=== PATIENT | female | born 1985 | race African-American/Black ===

== ENCOUNTER 2018-09-16 04:24 | Emergency (ER) | payer OTHER ==
[2018-09-16] MEDS ORDERED: ACETAMINOPHEN 325 MG TABLET PO ONE (04:34)
[2018-09-16] MEDS ORDERED: KETOROLAC TROMETHAMINE 60 MG/2 ML SDV IM ONE (05:27)
[2018-09-16] MEDS ORDERED: CYCLOBENZAPRINE HCL 10 MG TABLET PO ONE (05:28)
[2018-09-16] MEDS ORDERED: LIDOCAINE 5% (700 MG) TRANSDERMAL ADH..PATCH TP ONE (05:38)
--- NOTE | 2018-09-16 06:02 | RADIOLOGY REPORT (SQ) ---
CLINICAL HISTORY: pain COMPARISON: None. TECHNIQUE: XR HIP 2 OR MORE VIEWS 09/16/2018 5:26 AM SENIOR OFFICE SUPPORT ASSISTANT [facility] FINDINGS: There is no fracture. Joint spaces are preserved. Soft tissues are unremarkable. There are small smoothly marginated ossicles superior to the left greater trochanter. IMPRESSION: No acute osseous findings.
--- NOTE | 2018-09-16 06:26 | ER Document Report ---
HPI - HPI Patient complains to provider of: left leg pain Time Seen by Provider: 09/16/18 05:26 Pain Level: 4 Context: Patient is a 32-year-old female presenting to the emergency department complaining of left hip pain. Patient states she has a long history of left hip pain. States she was recently diagnosed with sciatic nerve pain and then also had a "nerve stimulator test." States she knows she has a pinched nerve in her right leg. States she is unsure of exactly where this or what is being pinched but states this evening the pain intensified which presents her to the emergency room. Patient denies current follow-up with orthopedics or primary care provider. States this nerve stimulator was "a long time ago." Patient denies any recent trauma or injury to the left hip or buttocks area. Patient initially states she does have some numbness and tingling in the left lower extremity. Patient denies any loss of Bowel or bladder, denies urinary retention. Past medical history: IBS, "pinched nerve" Medications: True Pedrito Allergies: None Patient states she is currently on her menses. - CONSTITUTIONAL Constitutional: DENIES: Fever, Chills - MUSCULOSKELETAL Musculoskeletal: REPORTS: Extremity pain - left hip Past Medical History - Social History Smoking Status: Never Smoker Chew tobacco use (# tins/day): No Frequency of alcohol use: None Drug Abuse: None Family History: Reviewed & Not Pertinent Patient has suicidal ideation: No Patient has homicidal ideation: No Renal/ Medical History: Denies: Hx Peritoneal Dialysis Vertical Provider Document - INFECTION CONTROL TRAVEL OUTSIDE OF THE [place] IN LAST 30 DAYS: No Course - Re-evaluation Re-evalutation: 09/16/18 06:26 Upon reassessment patient states pain has somewhat eased. Patient denies any more numbness or tingling in the left extremity. States the pain still hurts more when she applies weight to the left hip. Discussed that if patient cannot walk on her hip the next step would be to do a CT of that area to make sure there is no definitive fracture. CT would also show us if there is currently avascular necrosis. Patient denies any history of sickle cell trait or disease. patient states she knows she did not fall or injure that area she knows that it is her pinched nerve and she wishes to refuse a CT at this time. Patient is requesting crutches at this time stating she does not think she can put pressure on the left lower extremity. Discussed with her now that she is new to the area she needs to follow-up with orthopedics for continued care. Discussed [id number] Tylenol and Motrin, Lidoderm patches and a prescription for Flexeril. Unlikely hip fracture, avascular necrosis or cauda equina syndrome due to physical exam and HPI. Patient is stable for discharge at this time. - Vital Signs Vital signs: Temp Pulse Resp BP Pulse Ox 98.5 F 82 18 114/78 99 09/16/18 04:32 09/16/18 04:32 09/16/18 04:32 09/16/18 04:32 09/16/18 04:32 Discharge - Discharge Clinical Impression: Hip pain Qualifiers: Laterality: left Qualified Code(s): M25.552 - Pain in left hip Condition: Stable Disposition: HOME, SELF-CARE Additional Instructions: As we discussed you have been seen and treated in the emergency department for hip pain. You should follow-up with orthopedics as soon as possible. You should take medications as prescribed. Please take [id number] Tylenol Motrin for pain. You can also use heat packs if that helps. Please return to the emergency room should he have urinary retention, loss of bowel or bladder. Please return if you have any other concerning symptoms. Stretching Exercises for the Back The physician has recommended that you begin stretching exercises for your back. These are often used even while the back is painful. However, you should notify the physician if the activities seem to increase your pain. PELVIC TILT: Lie flat on your back with knees bent. Tighten your stomach and buttock muscles so it flattens your lower back against the floor. Hold 10 seconds. Repeat 10 times, twice daily. KNEE RAISE: Lying on the back with knees bent, raise one knee to your chest, then the other. Hold both knees against the chest 10 seconds, then lower one knee at a time. Repeat 10 times, twice daily. PARTIAL TRUNK RAISE: Lie face down, arms at your sides. Keeping your waist on the floor, use your arms raise your chest up. Support yourself on your elbows for 30 seconds. Repeat twice daily, increasing the time to two minutes as you recover. As we discussed the x-rays of your left hip are negative. You need to continue follow-up with orthopedics for continued nerve pain. Please return to the emergency room if you lose control of your bowel or bladder. Please can return to the emergency room if you have urinary retention. Please return to the emergency room if you have any other concerning symptoms. Forms: Return to School Referrals: NAVYA ELENA DO [ACTIVE STAFF] - Follow up as needed
[2018-09-16 06:38] VITALS: BP 120/76
== END 2018-09-16 06:56 | disposition home or self-care (01) ==
LOC: ER 04:24
DX: M25.552 Pain in left hip (principal)
CPT/HCPCS: 99284; 96372; 73502; J1885